=== PATIENT | female | born 1930 | race African-American/Black ===

== ENCOUNTER → 2016-10-15 | Outpatient (CLI) | payer MEDICARE, OTHER ==
[2016-10-15 12:41] LABS: ASPARTATE AMINO TRANSFERASE 16 U/L (15-37); BLOOD UREA NITROGEN 20 mg/dL (7-18)
== END | disposition home or self-care (01) ==
LOC: CFH 06:37
PROVIDERS: ATTEND Internal Medicine
DX: E03.9 Hypothyroidism, unspecified (principal); E55.9 Vitamin D deficiency, unspecified; E78.2 Mixed hyperlipidemia; E87.6 Hypokalemia; I12.9 Hypertensive chronic kidney disease with stage 1 through stage 4 chronic kidney disease, or unspecified chronic kidney disease; N18.9 Chronic kidney disease, unspecified
CPT/HCPCS: 36415; 80053; 80061; 82306; 82570; 83970; 84156; 84443; 85025

== ENCOUNTER 2017-04-15 08:01 | Emergency (ER) | payer MEDICARE, OTHER ==
[~2017-04-15] VITALS: Ht 160 cm; Wt 77.9 kg
[2017-04-15 08:02] VITALS: BP 171/78
[2017-04-15 09:25] LABS: HEMATOCRIT 36.2 % (34.6-47.8); HEMOGLOBIN 11.8 g/dL (11.7-16.4); WHITE BLOOD COUNT 4.2 x10^3/uL (3.4-10)
[2017-04-15 09:39] LABS: BLOOD UREA NITROGEN 17 mg/dL (7-18)
[2017-04-15 09:45] LABS: ASPARTATE AMINO TRANSFERASE 19 U/L (15-37)
[2017-04-15] MEDS ORDERED: ALBUTEROL/IPRATROPIUM 2.5MG/0.5MG, 3 ML NPPB ONE (10:30)
== END 2017-04-15 10:56 | disposition home or self-care (01) ==
LOC: ED 08:20
DX: J20.9 Acute bronchitis, unspecified (principal); M54.31 Sciatica, right side; I10 Essential (primary) hypertension; J45.909 Unspecified asthma, uncomplicated
CPT/HCPCS: 36415; 71020; 80053; 83880; 85025; 94640; 99285; J7620

== ENCOUNTER → 2017-04-20 | Outpatient (CLI) | payer MEDICARE, OTHER ==
[2017-04-20 13:15] LABS: ASPARTATE AMINO TRANSFERASE 15 U/L (15-37); BLOOD UREA NITROGEN 25 mg/dL (7-18)
== END | disposition home or self-care (01) ==
LOC: CFH 07:52
PROVIDERS: ATTEND Internal Medicine
DX: E78.2 Mixed hyperlipidemia (principal); E03.9 Hypothyroidism, unspecified; E87.6 Hypokalemia; I12.9 Hypertensive chronic kidney disease with stage 1 through stage 4 chronic kidney disease, or unspecified chronic kidney disease; N18.9 Chronic kidney disease, unspecified; J45.909 Unspecified asthma, uncomplicated
CPT/HCPCS: 36415; 80053; 80061; 84443

== ENCOUNTER → 2017-10-21 | Outpatient (CLI) | payer MEDICARE, OTHER ==
[~2017-10-21] MED LIST: GADOBUTROL 10 MMOL/10 ML VIAL ONE
== END | disposition home or self-care (01) ==
LOC: CFH 13:51
PROVIDERS: ATTEND Internal Medicine
DX: M48.02 Spinal stenosis, cervical region (principal); M75.121 Complete rotator cuff tear or rupture of right shoulder, not specified as traumatic; M75.122 Complete rotator cuff tear or rupture of left shoulder, not specified as traumatic; M19.011 Primary osteoarthritis, right shoulder; M19.012 Primary osteoarthritis, left shoulder; M75.52 Bursitis of left shoulder; M94.212 Chondromalacia, left shoulder; M25.712 Osteophyte, left shoulder
CPT/HCPCS: 72141; 73221; A9585

== ENCOUNTER 2017-11-14 07:41 | Observation (INO) | payer MEDICARE, OTHER ==
[~2017-11-14] VITALS: Ht 160 cm; Wt 81.4 kg
[2017-11-14] MEDS ORDERED: ASPIRIN 81 MG TABLET CHEW ONE (08:12)
[2017-11-14] MEDS ORDERED: ALBUTEROL SULFATE 2.5 MG/3 ML ONE (08:17)
[2017-11-14] MEDS ORDERED: ASPIRIN 81 MG TABLET CHEW PO ONE ×2 (08:30)
[2017-11-14] MEDS ORDERED: ALBUTEROL SULFATE 2.5 MG/3 ML NPPB ONE (08:30)
[2017-11-14 08:50] LABS: MEAN CORPUSCULAR HEMOGLOBIN 28.7 pg (27.0-34.8); MEAN CORPUSCULAR HGB CONC 32.8 g/dL (32.4-35.8); MEAN CORPUSCULAR VOLUME 87.6 fL (80-100); MEAN PLATELET VOLUME 8.6 fL (7.4-10.4); PLATELET COUNT 164 x10^3/uL (130-400); RED BLOOD COUNT 3.97 x10^6/uL (3.82-5.3)
[2017-11-14 08:53] LABS: ALANINE AMINOTRANSFERASE 18 U/L (12-78); ALBUMIN 3.2 g/dL (3.4-5.0); ANION GAP 8 mmol/L (5-15); CALCIUM 8.8 mg/dL (8.5-10.1); CHLORIDE 108 mmol/L (98-107); CREATININE 1.34 mg/dL (0.55-1.02)
[2017-11-14 08:58] LABS: ALKALINE PHOSPHATASE 61 U/L (45-117); BILIRUBIN,TOTAL 0.4 mg/dL (0.2-1.0); TOTAL PROTEIN 6.9 g/dL (6.4-8.2); TROPONIN I < 0.015 ng/mL (0.000-0.045)
[2017-11-14 09:11] LABS: MD YES
[2017-11-14 09:13] LABS: <PLATELET ESTIMATE> ADEQUATE; <PLT MORPHOLOGY> NORMAL PLT MORPH; <RBC MORPHOLOGY> NORMAL; BAND#(MANUAL) 0.04 x10^3/uL; BANDS%(MANUAL) 1 % (0-7); EOS#(MANUAL) 0.56 x10^3/uL (0.0-0.4); EOS% (MANUAL) 15 % (1-7); LYMPHS% (MANUAL) 19 % (22-44); MONOS#(MANUAL) 0.22 x10^3/uL (0.3-2.7); MONOS% (MANUAL) 6 % (2-9); SEG#(MANUAL) 2.18 x10^3/uL (1.8-6.8); SEGS% (MANUAL) 59 % (42-75)
[2017-11-14] MEDS ORDERED: GUAIFENESIN/DM 200-20MG, 10ML UDC PO PRN (11:30)
[2017-11-14] MEDS ORDERED: ENOXAPARIN 40 MG/0.4 ML SQ SCH (11:30)
[2017-11-14] MEDS ORDERED: ALBUTEROL/IPRATROPIUM 2.5MG/0.5MG, 3 ML NPPB PRN (12:00)
[2017-11-14 12:12] VITALS: BP 152/74
[2017-11-14] MEDS: AZITHROMYCIN 500 MG in SODIUM CHLORIDE 0.9% 250 ML IV SCH (13:19)
[2017-11-14] MEDS: SODIUM CHLORIDE 0.9% 1,000 ML IV SCH (13:19)
[2017-11-14] MEDS: methylPREDNISolone SOD SUCC 40 MG/ML IVPush SCH ×2 (13:19→18:30)
[2017-11-14] MEDS: ALBUTEROL/IPRATROPIUM 2.5MG/0.5MG, 3 ML NPPB SCH ×2 (14:57→21:50)
[2017-11-14] MEDS ORDERED: HYDR25TA6 PO (16:29)
[2017-11-14] MEDS ORDERED: IRBE300T16 PO (16:29)
[2017-11-14] MEDS ORDERED: AMLO5TAB2 PO (16:29)
[2017-11-14] MEDS ORDERED: CARV12.52 PO (16:29)
[2017-11-14] MEDS ORDERED: LEVO25TA4 PO (16:29)
[2017-11-14] MEDS ORDERED: PANT40TA5 PO (16:29)
[2017-11-14] MEDS ORDERED: POTA20TA6 PO (16:34)
[2017-11-14] MEDS ORDERED: MULT-658 PO (16:34)
[2017-11-14] MEDS ORDERED: BENZ-17 PO (16:34)
[2017-11-14] MEDS ORDERED: CHOL4PAC3 PO (16:34)
[2017-11-14] MEDS ORDERED: FEXO180T15 PO (16:34)
[2017-11-14] MEDS ORDERED: COLE625T12 PO (16:34)
[2017-11-14] MEDS ORDERED: TETR15DR16 EACHEYE (16:34)
[2017-11-14] MEDS ORDERED: ASPI-621 PO (16:34)
[2017-11-14] MEDS ORDERED: GABA-826 PO (16:34)
[2017-11-14] MEDS ORDERED: ALBU8.5H8 INH (16:37)
[2017-11-14 17:00] VITALS: BP 160/71
[2017-11-14 20:21] VITALS: BP 143/76
[2017-11-14] MEDS: CARVEDILOL 12.5 MG TABLET PO SCH (21:00)
[2017-11-14] MEDS: POTASSIUM CHLORIDE 20 MEQ TAB.ER.PRT PO SCH (21:00)
[2017-11-14] MEDS: COLESEVELAM 625 MG TABLET PO SCH (21:00)
[2017-11-15] MEDS: methylPREDNISolone SOD SUCC 40 MG/ML IVPush SCH ×3 (00:35→12:06)
[2017-11-15] MEDS: SODIUM CHLORIDE 0.9% 1,000 ML IV SCH ×2 (00:36→12:04)
[2017-11-15 03:24] VITALS: BP 150/58
[2017-11-15 05:54] LABS: CHLORIDE 108 mmol/L (98-107)
[2017-11-15 05:55] LABS: MEAN CORPUSCULAR HEMOGLOBIN 29.2 pg (27.0-34.8); MEAN CORPUSCULAR VOLUME 88.4 fL (80-100); MEAN PLATELET VOLUME 8.8 fL (7.4-10.4); PLATELET COUNT 174 x10^3/uL (130-400); RED BLOOD COUNT 3.83 x10^6/uL (3.82-5.3); RED CELL DISTRIBUTION WIDTH 14.1 % (9.6-15.2)
[2017-11-15] MEDS ORDERED: LEVOTHYROXINE 50 MCG TABLET PO SCH (06:00)
[2017-11-15] MEDS ORDERED: ASPIRIN 81 MG TABLET EC PO SCH (06:00)
[2017-11-15 06:11] LABS: ANION GAP 11 mmol/L (5-15); CALCIUM 8.7 mg/dL (8.5-10.1); CREATININE 1.19 mg/dL (0.55-1.02)
[2017-11-15 06:29] LABS: BASOPHILS # (AUTO) 0.02 x10^3/uL (0-0.1); BASOPHILS % (AUTO) 0 % (0-1); EOSINOPHILS % (AUTO) 0 % (1-7); LYMPHOCYTES # (AUTO) 0.73 x10^3/uL (1-3.4); LYMPHOCYTES % (AUTO) 12 % (22-44); MD SCAN; MONOCYTES # (AUTO) 0.03 x10^3/uL (0.2-0.8); MONOCYTES % (AUTO) 1 % (2-9); NEUTROPHILS % (AUTO) 87 % (42-75)
[2017-11-15 06:56] VITALS: BP 158/65
[2017-11-15] MEDS: ALBUTEROL/IPRATROPIUM 2.5MG/0.5MG, 3 ML NPPB SCH ×3 (07:00→14:10)
[2017-11-15] MEDS ORDERED: PANTOPROZOLE 40MG TABLET PO SCH (07:30)
[2017-11-15] MEDS: POTASSIUM CHLORIDE 20 MEQ TAB.ER.PRT PO SCH (08:02)
[2017-11-15] MEDS: COLESEVELAM 625 MG TABLET PO SCH (08:02)
[2017-11-15] MEDS: CARVEDILOL 12.5 MG TABLET PO SCH (08:03)
[2017-11-15] MEDS ORDERED: BENZONATATE 100 MG CAPSULE PO SCH (09:00)
[2017-11-15] MEDS ORDERED: IRBESARTAN 300 MG TABLET PO SCH (09:00)
[2017-11-15] MEDS ORDERED: GABAPENTIN 100 MG CAPSULE PO SCH (09:00)
[2017-11-15] MEDS ORDERED: MULTIVITAMIN 1 TABLET PO SCH (09:00)
[2017-11-15] MEDS ORDERED: HYDROCHLOROTHIAZIDE 25 MG TABLET PO SCH (09:00)
[2017-11-15] MEDS ORDERED: CHOLESTYRAMINE LIGHT 4GM PACKET PO SCH (09:00)
[2017-11-15] MEDS ORDERED: CETIRIZINE 10 MG TABLET PO SCH (09:00)
[2017-11-15] MEDS ORDERED: AMLODIPINE 5 MG TABLET PO SCH (09:00)
[2017-11-15] MEDS ORDERED: ENOXAPARIN 30 MG/0.3 ML SQ SCH (11:00)
[2017-11-15] MEDS: AZITHROMYCIN 500 MG in SODIUM CHLORIDE 0.9% 250 ML IV SCH (12:05)
[2017-11-15] MEDS ORDERED: METH4TAB2 PO (13:52)
[2017-11-15] MEDS ORDERED: BENZ-17 PO (13:52)
[2017-11-15] MEDS ORDERED: ALBU6.7H INH (13:52)
[2017-11-15] MEDS ORDERED: AZIT500T PO (16:59)
== END 2017-11-15 16:00 | disposition home or self-care (01) ==
LOC: ED 10:41 → EDIP 11:02 → 5SO 11:40 → 3NE 16:58 → DCLOUNGE 11-15 15:38
PROVIDERS: ADMIT Internal Medicine; ATTEND Internal Medicine
DX: J20.9 Acute bronchitis, unspecified (principal); I10 Essential (primary) hypertension; M79.1 Myalgia; M25.519 Pain in unspecified shoulder; M54.2 Cervicalgia; Z97.4 Presence of external hearing-aid
CPT/HCPCS: 36415; 71045; 80048; 80053; 83735; 84100; 84484; 85025; 93005; 94640; 96361; 96365; 96366; 96372; 96375; 96376; 99285; G0378; J0456; J1650; J2920; J7030; J7050; J7512; J7613; J7620

== ENCOUNTER → 2018-02-23 | Outpatient (CLI) | payer MEDICARE, OTHER ==
[~2018-02-23] MED LIST changes: +ALBU6.7H INH; +ALBU8.5H8 INH; +AMLO5TAB7 PO; +ASPI-621 PO; +AZIT500T PO; +BENZ-17 PO; +CARV12.52 PO; +CHOL4PAC3 PO; +COLE625T12 PO; +FEXO180T15 PO; +GABA-826 PO; -GADOBUTROL 10 MMOL/10 ML VIAL ONE; +HYDR25TA6 PO; +IRBE300T16 PO; +LEVO25TA4 PO; +METH4TAB2 PO; +MULT-658 PO; +PANT40TA5 PO; +POTA20TA6 PO; +TETR15DR16 EACHEYE
== END | disposition home or self-care (01) ==
LOC: CFH 07:22
PROVIDERS: ATTEND Physical Medicine & Rehabilitation
DX: M75.122 Complete rotator cuff tear or rupture of left shoulder, not specified as traumatic (principal); M94.212 Chondromalacia, left shoulder; M25.412 Effusion, left shoulder; R60.0 Localized edema

== ENCOUNTER → 2018-04-14 | Outpatient (CLI) | payer MEDICARE, OTHER ==
[2018-04-14 12:42] LABS: BASOPHILS # (AUTO) 0.02 x10^3/uL (0-0.1); BASOPHILS % (AUTO) 1 % (0-1); EOSINOPHILS # (AUTO) 0.29 x10^3/uL (0-0.4); EOSINOPHILS % (AUTO) 8 % (1-7); LYMPHOCYTES # (AUTO) 1.12 x10^3/uL (1-3.4); LYMPHOCYTES % (AUTO) 31 % (22-44); MD NO; MEAN CORPUSCULAR HEMOGLOBIN 28.7 pg (27.0-34.8); MEAN CORPUSCULAR HGB CONC 32.6 g/dL (32.4-35.8); MEAN CORPUSCULAR VOLUME 88.1 fL (80-100); MEAN PLATELET VOLUME 9.6 fL (7.4-10.4); MONOCYTES # (AUTO) 0.39 x10^3/uL (0.2-0.8); MONOCYTES % (AUTO) 11 % (2-9); NEUTROPHILS # (AUTO) 1.83 x10^3/uL (1.8-6.8); NEUTROPHILS % (AUTO) 50 % (42-75); PLATELET COUNT 158 x10^3/uL (130-400); RED BLOOD COUNT 4.15 x10^6/uL (3.82-5.3); RED CELL DISTRIBUTION WIDTH 14.1 % (9.6-15.2)
[2018-04-14 12:56] LABS: ALBUMIN 3.2 g/dL (3.4-5.0); ANION GAP 6 mmol/L (5-15); CHLORIDE 108 mmol/L (98-107)
[2018-04-14 13:06] LABS: ALANINE AMINOTRANSFERASE 19 U/L (12-78); ALKALINE PHOSPHATASE 66 U/L (45-117); BILIRUBIN,TOTAL 0.5 mg/dL (0.2-1.0); CHOL/HDL RATIO 4.7; CHOLESTEROL, TOTAL 261 mg/dL (140-239); CREATININE 1.19 mg/dL (0.55-1.02); HDL CHOL % 21 % (28-40); HDL CHOLESTEROL (DIRECT) 55 mg/dL (40-60); LDL CHOLESTEROL,CALCULATED 156 mg/dL (54-169); LDL/HDL RATIO 2.8 (0.5-3.0); TRIGLYCERIDES 248 mg/dL (50-200); VLDL CHOLESTEROL 50 mg/dL (0-25)
== END | disposition home or self-care (01) ==
LOC: CFH 07:25
PROVIDERS: ATTEND Internal Medicine
DX: I12.9 Hypertensive chronic kidney disease with stage 1 through stage 4 chronic kidney disease, or unspecified chronic kidney disease (principal); N18.3 Chronic kidney disease, stage 3 (moderate); J45.909 Unspecified asthma, uncomplicated; K21.9 Gastro-esophageal reflux disease without esophagitis; E03.9 Hypothyroidism, unspecified; E55.9 Vitamin D deficiency, unspecified; E78.2 Mixed hyperlipidemia; G89.29 Other chronic pain
CPT/HCPCS: 36415; 80053; 80061; 82306; 82570; 83735; 83970; 84100; 84156; 84443; 84550; 85025